=== PATIENT | male | born 1965 ===

== ENCOUNTER → 2022-10-31 | Outpatient (CLI) | payer BC | LOC: M ADAMS 12:14 | PROVIDERS: ATTEND Urology | DX: N20.1 Calculus of ureter (principal) ==

== ENCOUNTER → 2024-02-19 | Outpatient (CLI) | payer BC | LOC: M SOG 07:48 | PROVIDERS: ATTEND Orthopaedic Surgery | DX: M25.512 Pain in left shoulder (principal); M25.511 Pain in right shoulder ==